=== PATIENT | male | born 1955 | race Caucasian/White ===

== ENCOUNTER 2018-01-07 11:35 | Day surgery (SDC) | payer BC, OTHER ==
[2018-01-06 15:23] VITALS: BMI 44.9
[2018-01-07] MEDS: PANTOPRAZOLE 40 MG TABLET (FP) PO ONE ×2 (06:50→12:18)
[2018-01-07] MEDS: GABAPENTIN 300 MG CAPSULE (FP) PO ONE ×2 (06:50→12:17)
[2018-01-07] MEDS: CELECOXIB 200 MG CAPSULE PO ONE ×2 (06:50→12:17)
--- NOTE | 2018-01-07 07:21 | HP ---
Admitting History and Physical - Admission Chief Complaint: right knee quad tendon rupture History of Present Illness: 62 year old male presents regarding his right knee. Patient states he fell 2 weeks ago and went to [facility]. He admits to a lot of right knee pain. XR were taken of his knee at [facility], which did not reveal fracture. He notes weekness and instability of the knee. He has difficulty from sit to stand. MRI of his right knee obtained on 01/05/2018 reveals Rupture of the quadriceps tendon without significant retraction. We discussed the urgency of repairing the quad tendon to regain full function of his knee, patient wishes to proceed. History Source: Patient - Past Medical History Cardiovascular: Yes: HTN - Past Surgical History Additional Past Surgical History: See written history & physical. - Smoking History Smoking history: Never smoked Have you smoked in the past 12 months: No - Alcohol/Substance Use Hx Alcohol Use: No Home Medications - Allergies Allergies/Adverse Reactions: Allergies Allergy/AdvReac Type Severity Reaction Status Date / Time No Known Allergies Allergy Verified 01/06/18 15:12 - Home Medications Home Medications: Ambulatory Orders Diltiazem Cd [Cardizem Cd -] 180 mg PO HS 01/06/18 Metoprolol Succinate 25 mg PO HS 01/06/18 Ibuprofen [Advil -] 600 mg PO TID PRN 01/07/18 Review of Systems - Review of Systems Musculoskeletal: reports: Decreased ROM (right knee), Joint Pain (right knee), Joint Swelling (right knee), Muscle Weakness (right leg) Physical Examination Vital Signs: Vital Signs Temperature 98.0 F 01/07/18 06:49 Pulse Rate 77 01/07/18 06:49 Respiratory Rate 18 01/07/18 06:49 Blood Pressure 120/76 01/07/18 06:49 O2 Sat by Pulse Oximetry (%) 96 01/07/18 06:49 Constitutional: Yes: Well Nourished, No Distress Eyes: Yes: Conjunctiva Clear HENT: Yes: Atraumatic, Normocephalic Neck: Yes: Supple Cardiovascular: Yes: Regular Rate and Rhythm Respiratory: Yes: Regular Gastrointestinal: Yes: Soft ...Rectal Exam: Yes: Deferred Musculoskeletal: Yes: Joint Swelling (right knee), Other (Positive quad lag with SLR) Assessment/Plan 62 year old male presents regarding his right knee. Patient states he fell 2 weeks ago and went to [facility]. He admits to a lot of right knee pain. XR were taken of his knee at [facility], which did not reveal fracture. He notes weekness and instability of the knee. He has difficulty from sit to stand. MRI of his right knee obtained on 01/05/2018 reveals Rupture of the quadriceps tendon without significant retraction. We discussed the urgency of repairing the quad tendon to regain full function of his knee, patient wishes to proceed. Pros, cons, risks, benefits and alternatives of a right knee quadricep tendon repair was discussed with the patient at length. Patient confirms his understanding and consents to proceed with a right knee quadriceps tendon repair.
--- NOTE | 2018-01-07 09:44 | OP ---
Operative Note - Note: Operative Date: 01/07/18 Pre-Operative Diagnosis: right quadriceps tendon rupture Operation: Right quad tendon repair Post-Operative Diagnosis: Same as Pre-op Surgeon: Kuldeep Onofre Legal Referee: Josephine Barber Anesthesia: General Estimated Blood Loss (mls): 10
[2018-01-07] MEDS: ACETAMINOPHEN 1000 MG/100 ML VIAL (NON FORMULARY) IVPB ONE ×2 (10:20→12:18)
[2018-01-07] MEDS: traMADol HCL 50 MG TABLET PO SCH ×3 (11:23→17:58)
[~2018-01-07 11:35] MED LIST: ACETAMINOPHEN 325 MG TABLET (FP) PO SCH; CEFAZOLIN 2 GM/D5W 2 GM/50 ML ML IVPB ONE; CELECOXIB 200 MG CAPSULE ONE; DESFLURANE GAS 240 ML BOTTLE IH ONE; DEXAMETHASONE SOD PHOSPHATE 4 MG/1 ML VIAL ONE; DEXAMETHASONE SOD PHOSPHATE/PF 10 MG/ML SDV ONE; GABAPENTIN 300 MG CAPSULE (FP) ONE; KETOROLAC TROMETHAMINE 30 MG/1 ML VIAL IVPUSH SCH; KETOROLAC TROMETHAMINE 30 MG/1 ML VIAL ONE; LACTATED RINGERS SOLUTION 1,000 ML IV SCH; LIDOCAINE HCL/PF 2% SDV 5ML VIAL ONE; MAG HYDROX/AL HYDROX/SIMETH 30 ML UNIT-DOSE CUP PO PRN; MIDAZOLAM HCL 2 MG/2 ML SINGLE DOSE VIAL ONE; ONDANSETRON 4 MG/2 ML VIAL IVPUSH PRN; ONDANSETRON 4 MG/2 ML VIAL ONE; PANTOPRAZOLE 40 MG TABLET (FP) ONE; PROMETHAZINE HCL 25 MG/1 ML VIAL IVPB PRN; PROPOFOL 20 ML ONE; ROPIVACAINE HCL 0.5% 30ML VIAL ONE; ROPIVICAINE 0.2%/MORPH PF/KETOROLAC - 51ML DISP.SYRINGE IA ONE; SODIUM CHLORIDE 0.9% P/F 10 ML VIAL IJ ONE; TRANEXAMIC ACID 1000 MG/10 ML VIAL IVPUSH ONE; ceFAZolin SODIUM 1 GM VIAL ONE; oxyCODONE HCL 10 MG SUSTAINED ACTING TABLET ONE; oxyCODONE HCL 10 MG SUSTAINED ACTING TABLET PO ONE; oxyCODONE HCL 5 MG TABLET PO PRN
[2018-01-07] MEDS: CEFAZOLIN 2 GM in DEXTROSE 5%-WATER - 50 ML IVPB SCH ×2 (12:19→18:20)
[2018-01-07] MEDS: GABAPENTIN 300 MG CAPSULE (FP) PO SCH ×2 (12:20→21:32)
[2018-01-07] MEDS: CELECOXIB 200 MG CAPSULE PO SCH ×2 (12:20→21:32)
[2018-01-07] MEDS: PANTOPRAZOLE 40 MG TABLET (FP) PO SCH (12:21)
[2018-01-07] MEDS: SENNOSIDES/DOCUSATE COMBO (SENNA PLUS) TABLET (UD) PO SCH ×2 (12:21→21:32)
[2018-01-07] MEDS: MULTIVITAMINS (DAILY MVI) TABLET (FP) PO SCH (12:21)
[2018-01-07] MEDS: ASCORBIC ACID 500 MG TABLET (FP) PO SCH ×2 (12:22→21:33)
--- NOTE | 2018-01-07 14:26 | SURG ---
Surgery Library Media Specialist Note Library Media Specialist: Josephine Barber PA-C Date of Service: 01/07/18 Diagnosis: right quadriceps tendon rupture Procedure: Right quad tendon repair I was present for the entirety of the operative procedure. For further detail, please refer to operative report. Visit type - Case Type Case Type: Scheduled - Emergency Emergency Visit: No - New patient This patient is new to me today: Yes Date on this admission: 01/07/18
[2018-01-07] MEDS: KETOROLAC TROMETHAMINE 30 MG/1 ML VIAL IVPUSH SCH (17:57)
[2018-01-07] MEDS: ACETAMINOPHEN 325 MG TABLET (FP) PO SCH (17:59)
--- NOTE | 2018-01-07 19:25 | DS ---
Physical Examination Vital Signs: Vital Signs Temperature 98.2 F 01/07/18 12:36 Pulse Rate 77 01/07/18 12:36 Respiratory Rate 18 01/07/18 12:36 Blood Pressure 114/74 01/07/18 12:36 O2 Sat by Pulse Oximetry (%) 97 01/07/18 12:36 Discharge Summary Reason For Visit: LACERATION RIGHT QUAD MUSCLE Current Active Problems Rupture quadriceps tendon (Acute) Procedures: Principal: right quadriceps tendon repair Hospital Course: Admitted for elective surgery. Procedure performed without complications. Pt received postoperative antibiotic prophylaxis and DVT ppx. Ambulated with physical therapy. Stable for discharge home with outpatient followup. Condition: Stable - Instructions Diet, Activity, Other Instructions: Dr. Melendez - Quadriceps Tendon Repair Instructions KEEP THE KNEE BRACE ON AT ALL TIMES FOR THE NEXT TWO WEEKS. DO NOT REMOVE IT FOR ANY REASON. DR. MELENDEZ WILL REMOVE THE BRACE AND DRESSINGS IN THE OFFICE. COVER THE BRACE WITH A PLASTIC BAG TO SHOWER. Call the office for a follow-up appointment with Dr. Melendez in TWO WEEKS. Medications: Take one Aspirin 325mg daily for 6 weeks to prevent blood clots in your legs. Take one Pantoprazole 40mg daily for 6 weeks to protect against heartburn and ulcers. Take Cephalexin (antibiotic) 3x/day for 10 days to help prevent skin infection. Take Celebrex 200mg twice daily for 30 days to reduce swelling and inflammation. Take a multivitamin, stool softener, and extra Vitamin C supplement daily. For pain: *Mild pain (1-3/10): Take 1 Tramadol tablet every 4 hours as needed. Moderate pain (4-6/10): Take 1 Tramadol tablet and 1 Percocet tablet every 4 hours as needed. Severe pain (7-10/10): Take 1 Tramadol tablet and 2 Percocet tablets every 4 hours as needed. Activity: DO NOT PUT ANY WEIGHT ON YOUR RIGHT LEG FOR TWO WEEKS Always use crutches or a walker when walking. Keep the knee brace on at all times to keep the leg straight. If the knee bends even once you will stretch out the repaired tendon and it will heal stretched out - if that happens you will not be able to fully straighten your knee PERMANENTLY. After your follow-up appointment, you will be placed in a hinged brace that is locked straight. After 6 weeks total the hinged brace will be gradually unlocked to allow you to increase the range of motion of your knee in stepwise increments. Once you are able to flex to 90 degrees you will come out of the brace and start physical therapy for more intensive stretching and strengthening exercises. Disposition: HOME - Home Medications Comprehensive Discharge Medication List: Ambulatory Orders Diltiazem Cd [Cardizem Cd -] 180 mg PO HS 01/06/18 Metoprolol Succinate 25 mg PO HS 01/06/18 Ascorbic Acid [Vitamin C -] 500 mg PO BID tablet 01/07/18 Aspirin [ASA -] 325 mg PO DAILY@0800 tablet 01/07/18 Celecoxib [CeleBREX -] 200 mg PO BID #60 capsule 01/07/18 Cephalexin Monohydrate [Keflex -] 500 mg PO TID #30 capsule 01/07/18 Oxycodone HCl/Acetaminophen [Percocet 5-325 mg Tablet] 1 - 2 tab PO Q4H PRN #60 tablet MDD 10 01/07/18 Pantoprazole Sodium [Protonix -] 40 mg PO DAILY #40 tablet.ec 01/07/18 Sennosides/Docusate Sodium [Pericolace -] 2 tablet PO BID tablet 01/07/18 traMADol HCL [Ultram -] 50 mg PO Q4H PRN #42 tablet MDD 6 01/07/18
[2018-01-07] MEDS ORDERED: DEXAMETHASONE SOD PHOSPHATE 10 MG/1 ML VIAL IVPB ONE (20:00)
[2018-01-07] MEDS: metoPROLOL SUCCINATE 25 MG TAB.SR.24H (FP) PO SCH ×2 (21:31→21:35)
[2018-01-08] MEDS: traMADol HCL 50 MG TABLET PO SCH ×3 (00:13→12:55)
[2018-01-08] MEDS: KETOROLAC TROMETHAMINE 30 MG/1 ML VIAL IVPUSH SCH ×3 (00:15→06:15)
[2018-01-08] MEDS: ACETAMINOPHEN 325 MG TABLET (FP) PO SCH ×3 (00:16→13:38)
[2018-01-08 05:30] VITALS: BP 110/63; PULSE 88; TEMP 97.4
[2018-01-08] MEDS ORDERED: ASPIRIN 325 MG TABLET PO SCH (08:00)
[2018-01-08 08:41] LABS: HEMATOCRIT 36.2 % (35.4-49); HEMOGLOBIN 12.1 GM/dl (11.7-16.9); MCH 29.6 pg (25.7-33.7); MCHC 33.4 g/dl (32.0-35.9); MEAN CELL VOLUME 88.7 fl (80-96); MEAN PLT VOLUME 7.8 fl (7.5-11.1); PLATELET COUNT 239 K/MM3 (134-434); RBC 4.08 M/mm3 (4.00-5.60); RDW 12.4 % (11.9-15.9); WHITE BLOOD COUNT 11.3 K/mm3 (4.0-10.8)
[2018-01-08 08:50] LABS: ANION GAP 10 MMOL/L (8-16); BLOOD UREA NITROGEN 19 mg/dl (7-18); CALCIUM 8.7 mg/dl (8.4-10.2); CHLORIDE 103 mmol/L (98-107); CO2 22 mmol/L (22-28); CREATININE 0.9 mg/dl (0.6-1.3); GLUCOSE,RANDOM 136 mg/dl (74-106); SODIUM 135 mmol/L (136-145)
[2018-01-08] MEDS ORDERED: REFRIGERATED ANITBIOTICS ONE (09:43)
[2018-01-08] MEDS: SENNOSIDES/DOCUSATE COMBO (SENNA PLUS) TABLET (UD) PO SCH (10:07)
[2018-01-08] MEDS: MULTIVITAMINS (DAILY MVI) TABLET (FP) PO SCH (10:07)
[2018-01-08] MEDS: PANTOPRAZOLE 40 MG TABLET (FP) PO SCH (10:07)
[2018-01-08] MEDS: GABAPENTIN 300 MG CAPSULE (FP) PO SCH (10:07)
[2018-01-08] MEDS: CELECOXIB 200 MG CAPSULE PO SCH (10:07)
[2018-01-08] MEDS: ASCORBIC ACID 500 MG TABLET (FP) PO SCH (10:08)
[2018-01-08] MEDS: oxyCODONE HCL 5 MG TABLET PO PRN ×2 (10:12→13:38)
--- NOTE | 2018-01-08 10:51 | PN ---
Progress Note, Physician Chief Complaint: s/p right quadricep tendon repair under spinal anesthesia History of Present Illness: post op day one, adductor canal block for post op pain - Current Medication List Current Medications: Active Medications Acetaminophen (Tylenol -) 650 mg PO Q6H [facility] Stop: 01/10/18 17:59 Last Admin: 01/08/18 06:16 Dose: 650 mg Al Hydroxide/Mg Hydroxide (Mylanta Oral Suspension -) 30 ml PO Q4H PRN PRN Reason: DYSPEPSIA Ascorbic Acid (Vitamin C -) 500 mg PO BID [facility] Last Admin: 01/08/18 10:08 Dose: 500 mg Aspirin (Asa -) 325 mg PO DAILY@0800 [facility] Last Admin: 01/08/18 08:16 Dose: 325 mg Celecoxib (Celebrex -) 200 mg PO BID [facility] Last Admin: 01/08/18 10:07 Dose: 200 mg Diltiazem HCl (Cardizem Cd -) 180 mg PO [facility] Last Admin: 01/07/18 21:37 Dose: Not Given Gabapentin (Neurontin -) 300 mg PO BID [facility] Stop: 01/10/18 09:59 Last Admin: 01/08/18 10:07 Dose: 300 mg Metoprolol Succinate (Toprol Xl -) 25 mg PO [facility] Last Admin: 01/07/18 21:35 Dose: Not Given Multivitamins/Minerals/Vitamin C (Tab-A-Vit -) 1 tab PO DAILY [facility] Last Admin: 01/08/18 10:07 Dose: 1 tab Ondansetron HCl (Zofran Injection) 4 mg IVPUSH Q6H PRN PRN Reason: NAUSEA Oxycodone HCl (Roxicodone -) 5 mg PO Q4H PRN PRN Reason: PAIN LEVEL 1-5 Last Admin: 01/07/18 19:30 Dose: 5 mg Oxycodone HCl (Roxicodone -) 10 mg PO Q4H PRN PRN Reason: PAIN LEVEL 6-10 Last Admin: 01/08/18 10:12 Dose: 10 mg Pantoprazole Sodium (Protonix -) 40 mg PO DAILY [facility] Last Admin: 01/08/18 10:07 Dose: 40 mg Senna/Docusate Sodium (Pericolace -) 2 tablet PO BID [facility] Last Admin: 01/08/18 10:07 Dose: 2 tablet Tramadol HCl (Ultram -) 50 mg PO Q6H [facility] Last Admin: 01/08/18 06:16 Dose: 50 mg - Objective Vital Signs: Vital Signs Temperature 97.4 F L 01/08/18 05:28 Pulse Rate 88 01/08/18 05:28 Respiratory Rate 18 01/08/18 09:04 Blood Pressure 110/63 01/08/18 05:28 O2 Sat by Pulse Oximetry (%) 98 01/08/18 09:04 Constitutional: Yes: Well Nourished Cardiovascular: Yes: WNL Respiratory: Yes: WNL Gastrointestinal: Yes: WNL Labs: CBC, BMP 01/08/18 07:20 01/08/18 07:20 Assessment/Plan No adverse effect from anesthetic, dept of anesthesia will sign off care at this time.
--- NOTE | 2018-01-21 08:57 | OP ---
DATE OF OPERATION: 01/07/2018 PREOPERATIVE DIAGNOSIS: Right quadriceps tendon rupture. POSTOPERATIVE DIAGNOSIS: Right quadriceps tendon rupture. PROCEDURE: Suture repair of right quadriceps tendon rupture. ATTENDING: Rodo Melendez MD GANG SAW OPERATOR: HARLEY Robbins ANESTHESIA: General anesthesia. ESTIMATED BLOOD LOSS: 10 mL COMPLICATIONS: None. DISPOSITION: The patient was awakened and transferred to the PACU in stable condition. INDICATIONS: This is a 62-year-old male who presented to the office after having fallen as an ER followup. He was having tremendous right knee pain and inability to maintain a straight leg raise. He was sent for an MRI of the right knee, and this showed a complete rupture of the quadriceps tendon from the superior pole of the patella. The patient was indicated for surgery as this would not likely heal non-operatively. The risks, benefits, and alternatives to the procedure were explained to the patient in great detail, and he elected to proceed with the surgery. On the day of surgery, the patient was taken to the operating room and placed on the OR table. All bony prominences were padded. General anesthesia was administered by the anesthesiologist. Intravenous antibiotics were administered for infection prophylaxis. A timeout was performed with the team to verify the patient's side, site, and the procedure to be performed. The right lower extremity was then prepped and draped in the usual sterile fashion. The extremity was elevated and exsanguinated, and a tourniquet was inflated. A midline incision was made starting superior to the patella and extending to the inferior patella border. Sharp dissection and electrocautery was performed down through the skin and subcutaneous tissues. There was noted to be a complete rupture of the quadriceps tendon just proximal to its insertion on the superior border of the patella. There was extension to both the medial as well as lateral retinacula. There was a moderate amount of hematoma noted which was expressed from the joint and lavaged with sterile saline using a pulsatile lavage device. The articular cartilage was evaluated and found to be intact. No fractures were noted. At this point, the tendon edges were gently debrided back to healthy-appearing tissue. The superior pole of the patella was then prepared using a rongeur and a curette down to bleeding bony surface. Next, number 2 FiberWire suture was used to run a total of 4 strands of suture coming out distally in a running locking-type stitch. There was excellent tension taken up in the sutures with no gaping noted. An Arthrex 2.0 drill bit was then used to drill 3 parallel tunnels in the patella, 1 in the center and then 1 on each side, by a centimeter. The middle 2 sutures attached to the quadriceps tendon were then passed through the middle hole, followed by the medial and lateral sutures out through their respective holes. Hemostats were then placed and used to take up tension in the sutures and bring the quadriceps tendon snuggly down to the patella. A bump was placed under the ankle to place the knee in full to slight hyperextension. Once this was completed, the FiberWire sutures were tied over the bony bridge of the patella. It should be noted that the patella was tracking centrally within the trochlea without any subluxation noted. This repair was reinforced with 0 V-Loc 180 barbed suture in the medial and lateral retinacula. The wound was thoroughly irrigated with normal saline via pulsatile lavage. A 3-minute dilute Betadine lavage was performed, and following this, the wound was again irrigated with the pulsatile lavage device. Deep tissues were closed with number 1 Vicryl sutures. The superficial subcutaneous tissues were closed with a running 2-0 V-Loc 90 barbed suture. The skin was approximated with a 3-0 monofilament V-Loc 90 suture, and Dermabond skin adhesive was then applied for additional closure strength and watertight seal. A sterile dressing was then applied, followed by Webril padding. A posterior L-shaped splint was fashioned out of 5-inch Ortho-Glass and placed from the mid-thigh to the toes and wrapped in an Gomez wrap. This was then followed by a knee immobilizer locked in extension. The patient was then awakened and taken to the PACU in stable condition. RODO MELENDEZ M.D. [id number]
== END 2018-01-08 13:58 | disposition home or self-care (01) ==
LOC: FASUSAT 11:35 → FM/S 11:35 → FASUSAT 01-08 13:58
PROVIDERS: ATTEND Student in an Organized Health Care Education/Training Program
PROC: 0LQL0ZZ Repair Right Upper Leg Tendon, Open Approach (ICD-10-PCS; principal; 2018-01-07 08:34)
DX: S76.121A Laceration of right quadriceps muscle, fascia and tendon, initial encounter (principal); X58.XXXA Exposure to other specified factors, initial encounter; Y93.9 Activity, unspecified; Y92.9 Unspecified place or not applicable
CPT/HCPCS: 36415; 80048; 85027; 94760; 97116-GP; 97162-GP; J0131; J1100

== ENCOUNTER 2018-06-25 06:15 | Day surgery (SDC) | payer BC, OTHER ==
[2018-06-21 14:36] VITALS: BMI 31.6
[2018-06-25] MEDS ORDERED: ROPIVACAINE HCL 0.5% 30ML VIAL ONE (06:27)
[2018-06-25] MEDS ORDERED: MIDAZOLAM HCL 2 MG/2 ML SINGLE DOSE VIAL ONE ×4 (06:27→07:02)
[2018-06-25] MEDS ORDERED: EPINEPHrine 1:1,000 1 MG/1 ML - 30ML VIAL (INJECTION) ONE (07:12)
[2018-06-25] MEDS ORDERED: PROPOFOL 20 ML ONE ×2 (08:01)
[2018-06-25] MEDS ORDERED: SUCCINYLCHOLINE CHLORIDE 200 MG/10 ML VIAL ONE (08:01)
[2018-06-25] MEDS ORDERED: fentaNYL CITRATE 250 MCG/5 ML VIAL ONE (08:09)
[2018-06-25] MEDS ORDERED: ACETAMINOPHEN 1000 MG/100 ML VIAL (NON FORMULARY) IVPB ONE ×2 (09:24→09:35)
[2018-06-25] MEDS ORDERED: ONDANSETRON 4 MG/2 ML VIAL IVPUSH PRN (09:24)
[2018-06-25] MEDS ORDERED: oxyCODONE HCL 5 MG TABLET PO PRN (09:24)
[2018-06-25] MEDS ORDERED: PROMETHAZINE HCL 25 MG/1 ML VIAL IVPUSH PRN (09:24)
[2018-06-25] MEDS ORDERED: ONDANSETRON 4 MG/2 ML VIAL IVPUSH ONE (09:32)
[2018-06-25 09:53] VITALS: TEMP 97.8
--- NOTE | 2018-06-25 09:56 | OP ---
DATE OF OPERATION: 06/25/2018 SURGEON: John Carrera MD ASSISSTANT: HARLEY Solis PREOPERATIVE DIAGNOSIS: 1. Left shoulder rotator cuff tear. 2. Left shoulder adhesive capsulitis. 3. Left shoulder impingement syndrome. 4. Left shoulder acromioclavicular joint disease. 5. Left shoulder superior labral tear, anterior-posterior synovitis. POSTOPERATIVE DIAGNOSIS: 1. Left shoulder rotator cuff tear. 2. Left shoulder adhesive capsulitis. 3. Left shoulder impingement syndrome. 4. Left shoulder acromioclavicular joint disease. 5. Left shoulder superior labral tear, anterior-posterior synovitis. PROCEDURE: 1. Left shoulder arthroscopy with arthroscopic rotator cuff repair. CPT code 69312. 2. Left shoulder arthroscopy with lysis and resection of adhesions. CPT code 65159. 3. Left shoulder arthroscopy with subacromial decompression. CPT code 52452. 4. Left shoulder arthroscopy with resection of the distal clavicle, acromioclavicular joint. CPT code 32607. 5. Left shoulder arthroscopy with debridement. CPT code 95708. FINDINGS: 1. Extensive tearing of the biceps tendon through the groove into the joint. 2. Full-thickness supraspinatus infraspinatus rotator cuff tear. 3. Central grade 2-3 cartilage injury in the glenoid humerus before anterior labral fraying. 4. Glenohumeral synovitis with adhesions. 5. Type 2 acromion anterior spurring. 6. Inferior spurs, distal clavicle, with acromioclavicular degenerative joint disease. 7. Thickened scar tissue subacromial space, most pronounced anteriorly with adhesions and scar tissue. REPAIR TYPE: Four mattress sutures were placed into the supraspinatus and infraspinatus complex and secured to a bleeding bone bed using three Lefor anchors. One anchor was placed for the anterior suture, one for the posterior suture, and the two central sutures were combined into one anchor. DESCRIPTION OF PROCEDURE: Informed consent was obtained. The patient was taken to the operating room, where the upper extremity was prepped and draped in a sterile fashion. The shoulder was manipulated for a full range of motion. A posterior incision portal was made and directed to the glenohumeral joint. Under direct visualization, an anterior incision and portal was made. Extensive synovitis, as well as chondral injuries throughout the glenohumeral joint were debrided and removed. Any identified labral injuries, including the superior labral tear, anterior and posterior, and anterior labrum torn portions, were removed as well. The rotator cuff was visualized and noted to have a full-thickness tear. The edges were debrided. The posterior incision portal was redirected to the subacromial space where a lateral incision portal was made. Excessive and thickened scar tissue noted throughout the subacromial space, including bursal and scar tissue, were removed. The type 2 acromion was converted into a flattened type 1 using a bur for subacromial decompression. The distal inferior spur at the distal clavicle was also debrided with the use of an accessory portal in the acromioclavicular joint. The edges of the rotator cuff were identified. Sutures were placed into the rotator cuff and secured using anchors through the greater tuberosity. Prior to securing, a bleeding bed was made using a small bur, creating a bleeding surface of the rotator cuff insertion. The shoulder was then drained, a single suture was placed in all portals, a sterile dressing was placed and the patient was transferred to the recovery room without complication. The PA listed above was present and assisted at surgery. Their presence was absolutely medically necessary for the completion of the procedure. They helped hold the arthroscopy, pass instruments (and implants when indicated) and the procedure could not have been completed without their assistance. ADDENDUM: Due to extensive tearing, the biceps tendon could not be repaired to the lateral humerus. This was released to a scar in the soft tissue. JOHN CARRERA M.D. [id number]
--- NOTE | 2018-06-25 09:56 | OP ---
ADDENDUM DATE OF OPERATION: DATE OF DICTATION: 06/25/2018 The PA listed above was present and assisted at surgery. Their presence was absolutely medically necessary for the completion of the procedure. They helped hold the arthroscopy, pass instruments (and implants when indicated) and the procedure could not have been completed without their assistance. JOHN CARRERA M.D. [id number] MTDD
[2018-06-25] MEDS ORDERED: oxyCODONE HCL 5 MG TABLET PO ONE (10:07)
[2018-06-25] MEDS ORDERED: oxyCODONE HCL 5 MG TABLET ONE ×2 (10:14→11:20)
[2018-06-25] MEDS ORDERED: diazePAM 5 MG TABLET PO ONE ×2 (10:16→10:20)
[2018-06-25] MEDS ORDERED: diazePAM 5 MG TABLET ONE (10:27)
[2018-06-25 12:30] VITALS: BP 122/70; PULSE 76
== END 2018-06-25 12:15 | disposition home or self-care (01) ==
LOC: FASU 06:15
PROVIDERS: ATTEND Orthopaedic Surgery
PROC: 0RNK4ZZ Release Left Shoulder Joint, Percutaneous Endoscopic Approach (ICD-10-PCS; 2018-06-25)
PROC: 0PBB4ZZ Excision of Left Clavicle, Percutaneous Endoscopic Approach (ICD-10-PCS; 2018-06-25)
PROC: 0RBK4ZZ Excision of Left Shoulder Joint, Percutaneous Endoscopic Approach (ICD-10-PCS; 2018-06-25)
PROC: 0LQ24ZZ Repair Left Shoulder Tendon, Percutaneous Endoscopic Approach (ICD-10-PCS; principal; 2018-06-25 07:30)
DX: M75.122 Complete rotator cuff tear or rupture of left shoulder, not specified as traumatic (principal); M75.02 Adhesive capsulitis of left shoulder; M75.42 Impingement syndrome of left shoulder; M19.012 Primary osteoarthritis, left shoulder; S43.432A Superior glenoid labrum lesion of left shoulder, initial encounter; X58.XXXA Exposure to other specified factors, initial encounter; Y93.9 Activity, unspecified; Y92.9 Unspecified place or not applicable
CPT/HCPCS: 94760; J0131

== ENCOUNTER 2023-04-07 07:34 | Emergency (ER) | payer OTHER, BC ==
[2023-04-07] MEDS ORDERED: SODIUM CHLORIDE 1,000 ML IV ONE (07:35)
[2023-04-07] MEDS ORDERED: ONDANSETRON 4 MG/2 ML VIAL IVPUSH ONE (07:36)
[2023-04-07] MEDS ORDERED: ONDANSETRON 4 MG/2 ML VIAL ONE (08:00)
[2023-04-07 08:13] VITALS: TEMP 99.1; BMI 30.7
[2023-04-07 08:25] LABS: HEMATOCRIT 44.3 % (35.4-49); MCH 29.6 pg (25.7-33.7); MCHC 33.9 g/dl (32.0-35.9); MEAN CELL VOLUME 87.3 fl (80-96); MEAN PLT VOLUME 8.3 fl (7.5-11.1); PLATELET COUNT 180.4 10^3/uL (134-434); RBC 5.08 10^6/uL (4.00-5.60); WHITE BLOOD COUNT 8.8 10^3/uL (4.0-10.8)
[2023-04-07 08:51] LABS: ALBUMIN 4.4 g/dl (3.4-5.0); BILIRUBIN,TOTAL 0.9 mg/dl (0.2-1); CREATININE 1.1 mg/dl (0.6-1.3); MAGNESIUM 1.7 mg/dL (1.8-2.4); POTASSIUM 3.5 mmol/L (3.5-5.1); TOT PROT 6.9 g/dl (6.4-8.2)
[2023-04-07] MEDS ORDERED: ACETAMINOPHEN 1000 MG/100 ML BAG IVPB ONE (09:40)
[2023-04-07] MEDS ORDERED: ACETAMINOPHEN INJECTION 100 ML IVPB ONE (10:05)
[2023-04-07 10:33] LABS: PLATELET ESTIMATE ADEQUATE
[2023-04-07 11:27] VITALS: BP 104/62; PULSE 74; RESP 16
== END 2023-04-07 11:27 | disposition home or self-care (01) ==
LOC: FER 07:34
PROC: 3E033NZ Introduction of Analgesics, Hypnotics, Sedatives into Peripheral Vein, Percutaneous Approach (ICD-10-PCS; principal; 2023-04-07)
PROC: 3E033GC Introduction of Other Therapeutic Substance into Peripheral Vein, Percutaneous Approach (ICD-10-PCS; 2023-04-07)
PROC: 3E0337Z Introduction of Electrolytic and Water Balance Substance into Peripheral Vein, Percutaneous Approach (ICD-10-PCS; 2023-04-07)
DX: R55 Syncope and collapse (principal); B34.9 Viral infection, unspecified; U07.1 COVID-19
CPT/HCPCS: 0241U-QW; 36415; 71045-TC-FY; 80053; 83735; 84484; 85027; 93005; 99285-25

== ENCOUNTER 2024-11-27 12:03 | Emergency (ER) | payer OTHER, BC ==
[2024-11-27 12:32] VITALS: TEMP 97.5; BMI 30.6
[2024-11-27] MEDS ORDERED: ACETAMINOPHEN INJECTION 100 ML ONE (13:12)
[2024-11-27 13:41] LABS: ABSOLUTE IMMATURE GRANULOCYTES 0.02 x10^3/uL (0.0-0.031); BASOPHILS # 0.03 x10^3/uL (0.01-0.08); EOSINOPHIL % 0.2 % (0.8-7.0); EOSINOPHILS # 0.02 x10^3/uL (0.04-0.54); MCHC 33.7 g/dl (32.3-36.5); MEAN CELL VOLUME 88.0 fl (79.0-92.2); MEAN PLT VOLUME 9.9 fl (9.4-12.4); MONOCYTE # 0.50 x10^3/uL (0.30-0.82); MONOCYTE % 5.3 % (5.3-12.2); RDW 12.9 % (12.2-16.4)
[2024-11-27 13:44] LABS: ALK PHOS 58.0 U/L (45-117); CO2 28.0 mmol/L (21-32); CREATININE 0.9 mg/dl (0.6-1.3); GLUCOSE,RANDOM 102.0 mg/dl (74-106); SGOT/AST 15.0 U/L (15-37); SGPT/ALT 17.0 U/L (7-52); TOT PROT 7.1 g/dl (6.4-8.2)
[2024-11-27] MEDS: ACETAMINOPHEN 1000 MG/100 ML BAG IVPB ONE (13:47)
[2024-11-27 14:26] LABS: INR 1.06 (0.83-1.09); PROTHROMBIN TIME (PATIENT) 11.5 SEC (9.7-13.0)
[2024-11-27 14:29] LABS: ACTIVATED PTT 25.3 SECONDS (25.2-36.5)
[2024-11-27 16:17] VITALS: BP 150/87; PULSE 70; RESP 16
== END 2024-11-27 16:29 | disposition home or self-care (01) ==
LOC: FER 12:03
PROC: 3E033NZ Introduction of Analgesics, Hypnotics, Sedatives into Peripheral Vein, Percutaneous Approach (ICD-10-PCS; principal; 2024-11-27)
DX: R07.89 Other chest pain (principal); R42 Dizziness and giddiness; W18.2XXA Fall in (into) shower or empty bathtub, initial encounter
CPT/HCPCS: 36415; 70450-TC; 71046-TC-FY; 71101-TC-LT-FY; 72170-TC-FY; 73070-TC-RT-FY; 80053; 84484; 85025; 85610; 85730; 86850; 86900; 86901; 93005; 99285-25